=== PATIENT | female | born 1950 | race Two or more races ===

== ENCOUNTER → 2019-04-26 | Outpatient (CLI) | payer OTHER ==
[~2019-04-26] MED LIST: AVALIDE 150-12.1 TA1; AVELOX; CEFUROXIME500 MG PO; CIPRO500 MG PO; COREG CR10 MG; COREG CR10 MG PO; COZAAR25 MG; ECOTRIN81 MG; ECOTRIN81 MG PO; FLAGYL500MG PO; HYZAAR 50/12.51 TAB; INTESTINEX1 CA1 PO; IRBESARTAN-HCT1 EACH PO; LEVSIN/SL0.125 MG SL; METFORMIN HCL500 M1; METFORMIN HCL500 M1 PO; PROTONIX40 MG; SYNTHROID50 MCG; ZANTAC150 MG PO; [UNRECOGNIZED DRUG - OTHER]
== END | disposition home or self-care (01) ==
LOC: MAMO-SONO 07:58
DX: N60.12 Diffuse cystic mastopathy of left breast (principal); N60.11 Diffuse cystic mastopathy of right breast

== ENCOUNTER 2020-09-30 09:45 | Inpatient (IN) | payer OTHER ==
[~2020-09-30] VITALS: Ht 170.2 cm; Wt 91.6 kg
[2020-11-23] MEDS ORDERED: COZAAR100 MG PO (14:06)
[2020-11-23] MEDS ORDERED: OMEPRA PO (14:07)
[2020-11-23] MEDS ORDERED: CHILDREN'S ASPI81 MG PO (14:07)
[2020-11-23] MEDS ORDERED: VITAMIN C100 MG PO (14:07)
[2020-11-23] MEDS ORDERED: ZINC GLUCONATE100 MG PO (14:07)
[2021-03-25] MEDS ORDERED: METFORMIN HCL500 M3 PO (15:31)
[2021-03-30] MEDS ORDERED: PANTOPRAZOLE SO40 MG (07:58)
[2021-03-30] MEDS ORDERED: CARVEDILOL6.25 M1 (07:59)
[2021-03-30] MEDS ORDERED: LOSARTAN-HCTZ1 EAC2 (07:59)
[2021-03-30] MEDS ORDERED: SIMVASTATIN10 MG (07:59)
== END 2021-04-01 17:38 | disposition home or self-care (01) | DRG 331 ==
LOC: O/R 03-30 05:41 → SURG 03-30 05:41 → SURH 03-30 07:00 → SURG 03-30 10:19 → SURH 03-30 11:45 → SURG 04-01 17:38
PROVIDERS: ADMIT Colon & Rectal Surgery; ATTEND Colon & Rectal Surgery
PROC: 0DTP4ZZ Resection of Rectum, Percutaneous Endoscopic Approach (ICD-10-PCS; 2021-03-30)
PROC: 0DJD8ZZ Inspection of Lower Intestinal Tract, Via Natural or Artificial Opening Endoscopic (ICD-10-PCS; 2021-03-30)
PROC: 0DBN4ZZ Excision of Sigmoid Colon, Percutaneous Endoscopic Approach (ICD-10-PCS; principal; 2021-03-30 07:00)
DX: K57.32 Diverticulitis of large intestine without perforation or abscess without bleeding (principal); E11.9 Type 2 diabetes mellitus without complications; I10 Essential (primary) hypertension

== ENCOUNTER → 2020-11-23 08:00 | Outpatient (CLI) | payer OTHER ==
[~2020-11-23] VITALS: Ht 170.2 cm; Wt 90.7 kg
[~2020-11-23 08:00] MED LIST changes: +CHILDREN'S ASPI81 MG PO; +COZAAR100 MG PO; +OMEPRA PO; +VITAMIN C100 MG PO; +ZINC GLUCONATE100 MG PO
== END | disposition home or self-care (01) ==
LOC: LAB 08:00 → EDSTATUS 12-01 10:45 → SURH 12-01 10:45
PROVIDERS: ATTEND Colon & Rectal Surgery
DX: I10 Essential (primary) hypertension (principal); K57.32 Diverticulitis of large intestine without perforation or abscess without bleeding; K92.1 Melena; K58.8 Other irritable bowel syndrome